=== PATIENT | male | born 1970 | race Two or more races ===

== ENCOUNTER → 2021-04-24 | Outpatient (CLI) | payer OTHER ==
--- NOTE | 2021-04-24 12:50 | RAD ---
EXAM: Head CT without contrast. HISTORY: Closed head injury. TECHNIQUE: Computed tomographic images of the head were obtained without contrast. *One or more of the following individualized dose reduction techniques were utilized for this examina tion: 1. Automated exposure control. 2. Adjustment of the mA and/or kV according to patient size. 3. Use of iterative reconstruction technique. COMPARISON: None. FINDINGS: There is no acute or subacute extra-axial or intraparenchymal hemorrhage. There is no mass effect or midline shift. There is no hydrocephalus. The luna-white matter differentiation pattern is intact. The paranasal sinuses, orbits and mastoid air cells are unremarkable. There is no suspicious calvaria l lesion. IMPRESSION: No acute intracranial finding. Electronically signed by: Zhanna Saldana MD (04/24/2021 12:47 PM) [id number]
== END ==
LOC: CT 12:01
PROVIDERS: ATTEND Preventive Medicine Occupational Medicine
DX: S16.1XXA Strain of muscle, fascia and tendon at neck level, initial encounter (principal); S09.90XA Unspecified injury of head, initial encounter; X58.XXXA Exposure to other specified factors, initial encounter; Y93.89 Activity, other specified; Y92.89 Other specified places as the place of occurrence of the external cause; Y99.8 Other external cause status
CPT/HCPCS: 70450